=== PATIENT | male | born 1965 | race Caucasian/White ===

== ENCOUNTER → 2021-11-30 | Outpatient (CLI) | payer BC ==
[~2021-11-30] MED LIST: IOPAMIDOL 300 MG/ML 15ML VIAL IT ONE; LIDOCAINE HCL 1% LOCAL INJ 20 ML VIAL ONE
[2021-11-30 08:59] LABS: BASOPHILS # (AUTO) 0.1 (0.0-0.1); BASOPHILS % 0.6 % (0.0-1.0); EOSINOPHILS # (AUTO) 0.3 (0.0-0.4); EOSINOPHILS % 2.2 % (0.0-6.0); HEMATOCRIT 44.3 % (38.2-49.6); HEMOGLOBIN 14.4 g/dL (14.0-18.0); MEAN CORPUSCULAR HEMOGLOBIN 30.3 pg (28-32); MEAN CORPUSCULAR HGB CONC 32.5 g/dL (31-35); MEAN CORPUSCULAR VOLUME 93.1 fL (81-99); MONOCYTES # (AUTO) 1.2 (0.2-0.8); MONOCYTES % 9.3 % (4.4-11.3); NEUTROPHILS # (AUTO) 8.9 (2.1-6.9); NEUTROPHILS % 71.4 % (38.7-80.0); PLATELET COUNT 358 x10e3/uL (140-360); RED BLOOD COUNT 4.76 x10e6/uL (4.3-5.7)
[2021-11-30 09:25] LABS: ALBUMIN 3.6 g/dL (3.5-5.0); ANION GAP 10.3 mmol/L (8-16); CALCIUM 8.2 mg/dL (8.4-10.2); CREATININE, SERUM 0.99 mg/dL (0.72-1.25); POTASSIUM 4.3 mmol/L (3.5-5.1)
[2021-11-30 11:32] LABS: BODY FLUID TYPE SYNOVIAL
[2021-11-30 11:34] LABS: BODY FLUID APPEARANCE CLOUDY; BODY FLUID COLOR RED; WBC,BODY FLUID 385 cells/uL
[2021-11-30 11:35] LABS: RBC,BODY FLUID 22000 cells/uL
[2021-11-30 11:52] LABS: LYMPHOCYTES,BODY FLUID 12 %; MONO/MACROPHG,BODY FLUID 3 %; NEUTROPHILS,BODY FLUID 85 %
== END ==
LOC: DX 08:14
PROVIDERS: ATTEND Orthopaedic Surgery
DX: Z96.651 Presence of right artificial knee joint (principal); Z96.652 Presence of left artificial knee joint; T84.84XA Pain due to internal orthopedic prosthetic devices, implants and grafts, initial encounter
CPT/HCPCS: 20610; 27369; 36415; 73701; 77012; 80053; 82945; 85025; 85651; 86140; 87070; 87102; 87205; 87206; 88112; 89051; J2001; Q9967

== ENCOUNTER → 2022-02-05 | Day surgery (SDC) | payer BC ==
[~2022-02-05] MED LIST changes: +BUPIVACAINE 0.25% 30ML SDV ONE; +BUPIVACAINE 0.5%/EPI 30 ML SDV INJ ONE; +BUPROPION HCL100 MG PO; +BUSPIRONE HCL5 MG PO; +DEXAMETHASONE SOD PHOS INJ 4 MG/ML SDV ONE; +HYDROCODONE/APAP 7.5MG-325MG 1 EA TAB ONE; +HYDROMORPHONE 1MG/1ML INJ ONE; -IOPAMIDOL 300 MG/ML 15ML VIAL IT ONE; +LAMICTAL100 MG PO; +LITHOBID300 MG PO; +LOSARTAN POTAS100 MG PO; +METOCLOPRAMIDE HCL 10 MG/2ML VIAL ONE; +MIDAZOLAM HCL 2 MG/2 ML VIAL ONE; +NEURONTIN300 MG PO; +ONDANSETRON HCL INJ 2MG/ML 2ML 2 MG/ML VIAL ONE; +POVIDONE IODINE 0.05% 0.05 % ML PO ONE; +PROPOFOL IV EMULSION 10 MG/ML 20 ML VIAL ONE; +SEVOFLURANE INHAL SOLN 250 ML PEN BTL ONE; +SODIUM CHLORIDE 0.9% 250ML 250 ML ONE; +TOPAMAX50 MG PO; +VRAYLAR3 MG PO; +VYVANSE60 MG PO; +Vancomycin IV 1 GM VIAL ONE; +XANAX0.5 MG PO
[2022-02-05 15:21] LABS: BODY FLUID APPEARANCE SL.CLOUDY; BODY FLUID COLOR YELLOW; BODY FLUID TYPE SYNOVIAL; RBC,BODY FLUID 5000 cells/uL; WBC,BODY FLUID 151 cells/uL
[2022-02-05 15:39] LABS: GLUCOSE,BODY FLUID 30 mg/dL
[2022-02-05 15:50] VITALS: BP 130/78
[2022-02-05 20:23] LABS: LYMPHOCYTES,BODY FLUID 17 %; MONO/MACROPHG,BODY FLUID 53 %; NEUTROPHILS,BODY FLUID 30 %
== END | disposition home or self-care (01) ==
LOC: OR 08:23
PROVIDERS: ATTEND Orthopaedic Surgery
DX: M65.862 Other synovitis and tenosynovitis, left lower leg (principal); T84.84XA Pain due to internal orthopedic prosthetic devices, implants and grafts, initial encounter; I10 Essential (primary) hypertension; F41.9 Anxiety disorder, unspecified; F32.A Depression, unspecified; Y83.8 Other surgical procedures as the cause of abnormal reaction of the patient, or of later complication, without mention of misadventure at the time of the procedure; Z88.8 Allergy status to other drugs, medicaments and biological substances; Z01.810 Encounter for preprocedural cardiovascular examination; Z79.899 Other long term (current) drug therapy
CPT/HCPCS: 29876; 36415; 82945; 87070; 87205; 89051; 89060; 93005; J1170; J2001; J2250; J3370; J7050; J1100; J2405; J2765